=== PATIENT | female | born 1995 | race Caucasian/White ===

== ENCOUNTER 2020-09-23 06:45 | Outpatient (CLI) | payer OTHER ==
[~2020-09-23] VITALS: Ht 170.2 cm; Wt 84.5 kg
[~2020-09-23 06:45] MED LIST: PRENATAL TABLET PO
--- NOTE | 2020-09-23 07:27 | NUR ---
Pt arrives ambulatory to unit at 0653. Pt changes into gown, EFM explained and placed. Version process explained, pt questions asked and answered, pt verbalizes understanding. Vitals taken. IV started in left hand. Assessment complete, consent signed. Pt denies further needs at this time.
--- NOTE | 2020-09-23 07:44 | NUR ---
0775 - Dr. Sandoval to pt bedside. FHR tracing examined. Physical exam and sono confirm vertex presentation at this time. See physician notes. Pt taken off EFM, IV discontinued. 7624 - Pt ambulated off unit.
== END 2020-09-23 07:45 | disposition home or self-care (01) ==
LOC: LDRO 06:45
DX: O32.1XX0 Maternal care for breech presentation, not applicable or unspecified (principal); Z3A.37 37 weeks gestation of pregnancy

== ENCOUNTER 2020-10-11 06:18 | Inpatient (IN) | payer OTHER ==
[2020-10-11] VITALS (20 sets, daily range): BP systolic 99–158; BP diastolic 62–92; PULSE 78–120; TEMP 98.2–98.7
[~2020-10-11] VITALS: Ht 167.6 cm; Wt 85.5 kg
--- NOTE | 2020-10-11 07:15 | NUR ---
Patient arrives ambulatory with spouse for scheduled induction of labor. Patient reports occasional contractions that have worsened overnight, reports normal movement, denies vaginal bleeding or leaking of fluid. Plan of care for induction reviewed, patient agrees and denies questions. Patient changes into gown, EFM explained and placed. VS obtained. 0730- IV started in LFA, labs obtained and sent. LR infusing per protocol. Consents explained and signed, Assessment completed. Dr. Sandoval on unit, will come assess patient shortly. 0800- Category 1 FHR strip noted. Pitocin administration reviewed with patient, agrees to plan of care and dnies questions. Pitocin started at 2 mU per protocol and order.
[2020-10-11 07:50] LABS: BASO % 0.2 % (0.0-2.0); EOS % 0.2 % (0-4.0); GRAN # 10.8 (1.4-6.5); GRAN % 83.9 % (42.2-75.2); HEMOGLOBIN 10.7 g/dl (12.5-16.0); LYMPH # 1.2 (1.2-3.4); LYMPH % 9.1 % (20.0-51.0); MEAN CELL VOLUME 84 fl (80.0-100.0); MEAN CORPUSCULAR HEMOGLOBIN 27 pg (27.0-31.0); MEAN CORPUSCULAR HGB CONC 32 g/dl (33.0-37.0); MEAN PLATELET VOLUME 9.9 fl (7.4-10.4); MONO # 0.8 (0.1-0.6); MONO % 6.2 % (1.7-9.3); PLATELET COUNT 260 K/mm3 (130-400); RED BLOOD COUNT 3.97 M/mm3 (4.10-5.30)
[2020-10-11 07:57] LABS: HEMATOCRIT 33.3 % (37.0-47.0)
--- NOTE | 2020-10-11 08:30 | NUR ---
Dr. Sandoval at bedside. Reviews FHR strip. 0835- Vertex presentation confirmed via bedside sono per physician. Discussing AROM with patient, agrees and dnies questions. 0837- SVE per provider . AROM by Dr. Sandoval for small amount of lightly meconium stained fluid noted. Pericare given and patient repositioned WL. Updated on plan of care. Patient unsure if she desires epidural. Orders that patient may have if desires. 0850- Patient reports increased dicsomfort with contractions. Repositioned LL with peanut ball in place.
--- NOTE | 2020-10-11 09:15 | NUR ---
Patient reports increased pain. SVE /0. Dr. Sandoval notified via telephone, physician will come to unit. RN remains at bedside. Patient breathing through contractions.
--- NOTE | 2020-10-11 09:45 | NUR ---
Patient requesting SVE. 6/90/0. Patient reports increased pressure with contractions, repositions knee chest position. RN remains at bedside providing support. EFM adjusted as patient is moving frequently in bed, patient refuses BP cuff on at this time.
--- NOTE | 2020-10-11 10:05 | NUR ---
Intermittent difficulty tracing contractions via toco due to maternal position and movemnet. RN remains at bedside continuously palpating contractions. 1020- Patient LL with peanut ball in place. 1030- Patient LL with RL in [facility]. Dr. Sandoval at bedside. SVE /+1. Physician remains on unit.
--- NOTE | 2020-10-11 11:03 | NUR ---
1103- Patient requests SVE, 1. Increased bloody show noted. on unit and notified. RN remains at bedside. 1110- at bedside, SVE per provider . RN remains at bedside. Patient beginning to intermittently push with contractions and reports increased pressure. 1118- SVE per provider . Patient prepped for impending delivery. Periprep completed and nursery RN to bedside. 1120- Patient begins pushing with contractions with physician and RN at bedside. Moves vertex well. 1122- of viable male attended by Dr. Sandoval. to mother's abdomen, care of to Randolph Reyes RN. Apgars . Nuchal cord x1 and true knot x1 noted. 1126- Spont delivery of placenta. Pitocin blus started at 333 ml/hr/protocol. Fundal massage by RN firm and one below. Vaginal bleeding WNL. Perineum intact. Left labial varicosity noted per physician. Pericare given and ice pack applied. Patient updated on plan of care and safety reviewed.
[2020-10-12 00:45] VITALS: BP 131/74; PULSE 82; TEMP 98.9
[2020-10-12 05:15] VITALS: BP 118/69; PULSE 79; TEMP 97.6
[2020-10-12 07:32] VITALS: BP 120/77; PULSE 95; TEMP 98
[2020-10-12] MEDS ORDERED: IBU600 MG PO (08:38)
--- NOTE | 2020-10-12 10:26 | NUR ---
Initial visit attempt; Physician with family, Hvac Operations Technician left card of congratulations and God's blessings for the of their son and information regarding the availability of [facility].
== END 2020-10-12 13:30 | disposition home or self-care (01) | DRG 807 ==
LOC: OB 06:18 → LDR 07:11 → OB 07:11
PROVIDERS: ADMIT Obstetrics & Gynecology
PROC: 10E0XZZ Delivery of Products of Conception, External Approach (ICD-10-PCS; principal; 2020-10-11)
PROC: 10907ZC Drainage of Amniotic Fluid, Therapeutic from Products of Conception, Via Natural or Artificial Opening (ICD-10-PCS; 2020-10-11)
DX: O48.0 Post-term pregnancy (principal); Z37.0 Single live birth; O99.02 Anemia complicating childbirth; D64.9 Anemia, unspecified; O77.0 Labor and delivery complicated by meconium in amniotic fluid; O69.2XX0 Labor and delivery complicated by other cord entanglement, with compression, not applicable or unspecified; Z3A.40 40 weeks gestation of pregnancy; Z14.1 Cystic fibrosis carrier
CPT/HCPCS: J2590; J7120